=== PATIENT | male | born 1950 | race Two or more races ===

== ENCOUNTER 2022-09-25 00:15 | Emergency (ER) | payer OTHER ==
[~2022-09-25] VITALS: Ht 167.6 cm; Wt 90.7 kg
== END 2022-09-25 13:47 | disposition left against medical advice (07) ==
LOC: ER 00:15
DX: I10 Essential (primary) hypertension (principal); R00.0 Tachycardia, unspecified; Z20.822 Contact with and (suspected) exposure to COVID-19; N18.9 Chronic kidney disease, unspecified